=== PATIENT | male | born 1970 | race American Indian/Alaskan Native ===

== ENCOUNTER 2021-11-03 20:34 | Emergency (ER) | payer SELFPAY ==
[2021-11-03 20:42] VITALS: BP 151/93
[2021-11-03] MEDS ORDERED: LIDOCAINE-MPF (1%) 10 MG/1 ML VIAL 5 ML INFILTRATI ONE (23:40)
[2021-11-03 23:43] LABS: Bilirubin,Urine NEG (Negative); Blood,Urine NEG (Negative); Color,Urine Yellow (Yellow); Mucus,Urine FEW /HPF; Protein,Urine <15 mg/dL mg/dL (Negative)
--- NOTE | 2021-11-03 23:55 | Emergency Department Report ---
ED Male HPI - General Stated complaint: BURNING URINATION/POS STD Source: patient, RN notes reviewed Limitations: No Limitations - History of Present Illness Initial comments: Patient is a 51-year-old -[place] male with no past medical history presents to the ED with complaint of acute onset persistent dysuria, urinary frequency and urgency for the last 1 week after having unprotected sexual intercourse with a new sex partner. Patient states that he initially thought the symptoms would resolve on their own but that the symptoms have been worsening especially with urination. Patient denies penile discharge, ojy ticular pain, hematuria, abdominal pain, low back pain, fever, chills, nausea and vomiting or diarrhea and sore throat. MD Complaint: dysuria, other (Urinary frequency and urgency) -: Sudden, week(s) (1) Location: penis Radiation: none Severity: moderate Severity scale (0 -10): 5 Quality: burning, sharp Consistency: intermittent Improves with: none Worsens with: urination new sexual partner denies other symptoms, dysuria, other (Urinary frequency and urgency). denies: discharge, swelling, mass, rash, urinary retention, blood in urine, fever, n ausea/vomiting, incontinence - Related Data Sexually active: Yes Previous Rx's Medication Instructions Recorded Last Taken Type Doxycycline Hyclate 100 mg PO Q12H #28 cap 11/03/21 Unknown Rx Phenazopyridine [Pyridium] 200 mg PO BID #20 tab 11/03/21 Unknown Rx Allergies Allergy/AdvReac Type Severity Reaction Status Date / Time No Known Allergies Allergy Unverified 11/03/21 23:25 ED Review of Systems ROS: Stated complaint: BURNING URINATION/POS STD Other details as noted in HPI Constitutional: denies: chills, fever Eyes: denies: eye pain, eye discharge, vision change ENT: denies: ear pain, throat pain Respiratory: denies: cough, shortness of breath, wheezing Cardiovascular: denies: chest pain, palpitations Endocrine: no symptoms reported Gastrointestinal: denies: abdominal pain, nausea, vomiting, diarrhea, constipation, melena Genitourinary: urgency, dysuria, frequency. denies: hematuria, discharge, testicular pain, testicular mass Musculoskeletal: denies: back pain, joint swelling, arthralgia Skin: denies: rash, lesions Neurological: denies: headache, weakness, paresthesias Psychiatric: denies: anxiety, depression Hematological/Lymphatic: denies: easy bleeding, easy bruising ED Past Medical Hx - Medications Home Medications: Home Medications Medication Instructions Recorded Confirmed Last Taken Type Doxycycline Hyclate 100 mg PO Q12H #28 cap 11/03/21 Unknown Rx Phenazopyridine [Pyridium] 200 mg PO BID #20 tab 11/03/21 Unknown Rx ED Physical Exam - General General appearance: alert, in no apparent distress - Head Head exam: Present: atraumatic, normocephalic, normal inspection - Eye Eye exam: Present: normal appearance, PERRL, EOMI Pupils: Present: normal accommodation - ENT ENT exam: Present: normal exam, normal orophraynx, mucous membranes moist, TM's normal bilaterally, normal external ear exam - Neck Neck exam: Present: normal inspection, full ROM. Absent: tenderness - Respiratory Respiratory exam: Present: normal lung sounds bilaterally. Absent: respiratory distress, wheezes, rales, rhonchi, chest wall tenderness, decreased breath sounds, prolonged expiratory, other - Cardiovascular Cardiovascular Exam: Present: regular rate, normal rhythm, normal heart sounds. Absent: systolic murmur, diastolic murmur, rubs, gallop - GI/Abdominal GI/Abdominal exam: Present: soft, normal bowel sounds. 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 Absent: tenderness, CVA tenderness (R), CVA tenderness (L), muscle spasm, paraspinal tenderness, vertebral tenderness - Neurological Exam Neurological exam: Present: alert, oriented X3, CN II-XII intact, normal gait, reflexes normal - Psychiatric Psychiatric exam: Present: normal affect, normal mood - Skin Skin exam: Present: warm, dry, intact, normal color. Absent: rash ED Course Vital Signs 11/03/21 20:41 Temperature 99.0 F Pulse Rate 90 Respiratory 18 Rate Blood Pressure 151/93 O2 Sat by Pulse 99 Oximetry ED Medical Decision Making - Medical Decision Making This is a 51-year-old -[place] male with no past medical history presents to the ED with complaint of acute onset persistent dysuria, urinary frequency and urgency for the last 1 week after having unprotected sexual intercourse with a new sex partner. Patient states that he initially thought the symptoms would resolve on their own but that the symptoms have been worsening especially with urination. In the ED, patient is alert and oriented x3 and is not in any distress. Urinalysis showed mild urinary tract infection consistent with STD. Patient was empirically treated in the ED with Rocephin intramuscular injection for suspected gonorrhea infection. Patient was discharged home on antibiotics and advised to follow-up with the [facility] for further STD evaluation including HIV and syphilis. Patient is advised return to the ED immediately if symptoms get worse. - Differential Diagnosis STD; UTI; urethritis; gonorrhea; chlamydia Critical care attestation.: If time is entered above; I have spent that time in minutes in the direct care of this critically ill patient, excluding procedure time. ED Disposition Clinical Impression: Urethritis, unspecified, STD (sexually transmitted disease), Acute urinary tract infection, Gonorrhea in male Disposition: 01 HOME / SELF CARE / HOMELESS Is pt being admited?: No Does the pt Need Aspirin: No Condition: Stable Instructions: Urinary Tract Infection, Adult, [id number], Gonorrhea, Urethritis, Adult Additional Instructions: Take medication with food, drink plenty of fluids and follow-up with the [facility] for further STD testing including HIV and syphilis. Ensure that your sexual partner gets treated for the same. Return to the ED immediately if symptoms get worse. Prescriptions: Doxycycline Hyclate 100 mg PO Q12H #28 cap Phenazopyridine [Pyridium] 200 mg PO BID #20 tab Referrals: [facility] Depart [Outside] - 7-10 days Forms: STI Treatment and Prevention Time of Disposition: 23:58 Print Language: CAMEROONIAN
== END 2021-11-04 00:20 | disposition home or self-care (01) ==
LOC: ED 20:34
DX: N34.2 Other urethritis (principal); A54.9 Gonococcal infection, unspecified; Z79.899 Other long term (current) drug therapy
CPT/HCPCS: 81001; 96372; 99283; J0696; J3490